=== PATIENT | female | born 2000 | race Caucasian/White ===

== ENCOUNTER 2019-03-06 08:00 | Inpatient (IN) | payer SELFPAY ==
[2019-03-06] MEDS ORDERED: Fentanyl 100 MCG/2 ML VIAL ONE ×3 (09:09→12:07)
[2019-03-06] MEDS ORDERED: Lidocaine 1% w/Epinephrine 1:100K 20 ML VIAL ONE (09:49)
[2019-03-06] MEDS ORDERED: Bupivacaine 0.25% HCL 30 ML VIAL ONE (09:49)
[2019-03-06] MEDS ORDERED: Promethazine HCl 25 MG/ML VIAL IM PRN ×3 (11:44→12:00)
[2019-03-06] MEDS ORDERED: Dextrose 5% in Water 1,000 ML IV PRN (11:44)
[2019-03-06] MEDS ORDERED: HYDROcodone/Acetaminophen 10/325 mg Tablet PO PRN ×2 (11:44)
[2019-03-06] MEDS ORDERED: Ondansetron PF 4 MG/2 ML Vial IVP PRN (11:44)
[2019-03-06] MEDS ORDERED: Dextrose 50% Abboject 50 ML SYRINGE SLOW IVP PRN (11:44)
[2019-03-06] MEDS ORDERED: hydrALAZINE 20 MG/ML VIAL SLOW IVP PRN (11:44)
[2019-03-06] MEDS ORDERED: Morphine 2 MG/ML SYRINGE SLOW IVP PRN (11:44)
[2019-03-06] MEDS ORDERED: Acetaminophen 325 MG TAB PO PRN (11:44)
[2019-03-06] MEDS ORDERED: Morphine 4 MG/ML VIAL SLOW IVP PRN (11:44)
[2019-03-06] MEDS ORDERED: Meperidine HCl/PF 25 MG/ML VIAL ONE (11:48)
[2019-03-06] MEDS ORDERED: Meperidine HCl/PF 25 MG/ML VIAL SLOW IVP PRN (11:52)
[2019-03-06] MEDS ORDERED: Ondansetron HCl/PF 4 MG/2 ML Vial IVP PRN ×2 (11:52→12:00)
[2019-03-06] MEDS ORDERED: Promethazine HCl 25 MG/ML VIAL SLOW IVP PRN ×2 (11:52→12:00)
[2019-03-06] MEDS ORDERED: Lidocaine 1% PF 5 ML VIAL ONE (12:54)
[2019-03-06] MEDS ORDERED: PROPOFOL 200 MG/20 ML VIAL ONE (12:54)
[2019-03-06] MEDS ORDERED: Rocuronium Bromide 10 MG/ML (10ML VIAL) ONE (12:54)
--- NOTE | 2019-03-06 14:09 | OP ---
DATE OF PROCEDURE: 03/06/2019 PREOPERATIVE DIAGNOSIS: Acute appendicitis. PROCEDURE PERFORMED: Laparoscopic appendectomy. INDICATIONS: A 18-year-old female with 18-hour history of right lower quadrant pain, who went to the emergency room and was found to have appendicitis on CT. She started developing more generalized peritoneal signs and fever. FINDINGS: A ruptured appendix with a pelvic abscess, gangrenous in nature. DESCRIPTION OF PROCEDURE: After informed consent was obtained, the patient was taken to the operating room, given general endotracheal anesthesia, placed in the supine position. Abdomen was prepped and draped in usual fashion. Local anesthesia was infiltrated subcutaneously and deep and a subumbilical incision was performed, subcu divided sharply. The fascia was grasped with 2 stay sutures of 0 Vicryl placed in each side of midline. Midline was incised. Digital palpation revealed no local adhesions. A blunt 12-mm trocar inserted. Pneumoperitoneum was created to a pressure of 15 mmHg. A 0-degree laparoscope inserted under direct vision. Two 5-mm ports were placed, one suprapubic, one right lateral abdomen. The appendix was found, it was gangrenous. The mesoappendix was divided with LigaSure. The base of the appendix was divided with the linear 45 mm white load stapler. It was placed in an endosac, removed from the abdomen through the umbilical port in the endosac. She had cloudy purulent peritoneal fluid primarily in the pelvis. This was collected in a sputum trap for culture. Then, the residual was removed. Then, the abdomen was thoroughly irrigated with saline. A drain was placed and brought out through the suprapubic incision, placed in the pelvis and along the right gutter. Hemostasis was assured. Trocars and retractors were removed. The fascia was closed with interrupted 0 Vicryl suture. The skin was closed with interrupted 4-0 Rapide. Dermabond was applied. The patient tolerated the procedure well, transferred to Recovery in good condition. Sponge and needle count verified correct x2. Job ID: [id number]
[2019-03-06 16:36] VITALS: BMI 23.1
[2019-03-06] MEDS: D5 1/2 NS w/20 mEq KCL 1,000 ML IV SCH ×2 (18:18→21:05)
[2019-03-06] MEDS: Ketorolac Tromethamine 30 MG/ML VIAL IVP SCH ×2 (18:19→23:11)
[2019-03-06] MEDS: Piperacillin/Tazobactam 3.375 GM in Sodium Chloride 0.9% 100 ML IVPB SCH ×2 (18:22→23:11)
[2019-03-06] MEDS: Famotidine/PF 20 mg/2ml Vial SLOW IVP SCH (20:50)
[2019-03-06] MEDS: Famotidine 20 MG TAB PO SCH (21:04)
[2019-03-07] MEDS: D5 1/2 NS w/20 mEq KCL 1,000 ML IV SCH (06:06)
[2019-03-07] MEDS: Piperacillin/Tazobactam 3.375 GM in Sodium Chloride 0.9% 100 ML IVPB SCH ×2 (06:06→11:50)
[2019-03-07] MEDS: Ketorolac Tromethamine 30 MG/ML VIAL IVP SCH ×2 (06:06→11:50)
[2019-03-07 06:38] LABS: #Lymphocytes 1.9 thou/uL (1.20-3.40); #Monocytes 0.4 thou/uL (0.11-0.59); %Basophils 0.1 % (0.0-1.0); %Eosinophils 0.5 % (0.0-10.0); %Lymphocytes 35.1 % (28.0-48.0); %Monocytes 7.6 % (0.0-4.0); %Neutrophils 56.7 % (31.0-61.0); Hemoglobin 9.4 g/dL (12.0-16.0); Mean Corpuscular Hemoglobin 32.5 pg (25.0-35.0); Mean Corpuscular Volume 92.9 fL (78.0-98.0); Mean Platelet Volume 7.8 fL (7.4-10.4); Platelet Count 136 thou/uL (130-400); RBC Distribution Width 11.5 % (11.5-14.5); White Blood Cell (WBC) Count 5.3 thou/uL (4.8-10.8)
[2019-03-07 07:00] LABS: Anion Gap 10 mmol/L (10-20); BUN (Urea Nitrogen) 6 mg/dL (7.0-18.7); Calc. Creatinine Clearance 140 mL/min (70-130); Calcium 8.1 mg/dL (7.8-10.44); Carbon Dioxide 23 mmol/L (22-29); Chloride 108 mmol/L (98-107); Estimated GFR-MDRD Greater than 90; Glucose 101 mg/dL (70-105); Potassium 3.6 mmol/L (3.5-5.1); Sodium 137 mmol/L (136-145)
[2019-03-07] MEDS ORDERED: Enoxaparin Sodium 40 MG/0.4 ML SYRINGE SC SCH (09:00)
[2019-03-07] MEDS: Famotidine 20 MG TAB PO SCH (09:33)
[2019-03-07] MEDS: Famotidine/PF 20 mg/2ml Vial SLOW IVP SCH (09:34)
[2019-03-07 12:32] VITALS: BP 111/72; TEMP 98.5
--- NOTE | 2019-03-09 12:05 | DIS ---
DATE OF ADMISSION: 03/06/2019 DATE OF DISCHARGE: 03/07/2019 DISCHARGE DIAGNOSIS: PROCEDURE: Laparoscopic appendectomy on 03/06/2019. Postoperatively, she was admitted for IV antibiotics. The SANDY drain in place. She had moderate output from the SANDY drain, but was afebrile with normal white count and no growth from intraoperative cultures on postop day 1. The patient and her family requested discharge home on oral antibiotics with close followup in the outpatient clinic. I explained that my preference is to keep her for another 24 hours of antibiotics, but since clinically she was doing well and requested discharge, proceeded with discharge home on oral antibiotics. Due to the history of pelvic abscess and continued moderate output from the SANDY drain, the patient was instructed on SANDY care, told to make an appointment on Saturday for removal of the drain in clinic. She was sent home with prescriptions for ciprofloxacin and Flagyl for 3 days time. She has been given a prescription for Hubbard, but requested pain medication. It was not as strong, so she was also given a prescription for tramadol and instructed to use Tylenol and ibuprofen as first-line treatment for pain. She is to call on Saturday for a followup appointment with Dr. Dasilva. She is to keep an occlusive watertight dressing over the SANDY drain when she showers and to restrict her lifting to nothing heavier than 10 pounds. She is to return immediately if she develops worsening pain, fevers or chills. Job ID: [id number]
== END 2019-03-07 14:14 | disposition home or self-care (01) | DRG 340 ==
LOC: SDC 08:00 → SURG B 12:57
PROVIDERS: ADMIT Surgery; ATTEND Surgery
PROC: 0DTJ4ZZ Resection of Appendix, Percutaneous Endoscopic Approach (ICD-10-PCS; principal; 2019-03-06)
DX: K35.33 Acute appendicitis with perforation, localized peritonitis, and gangrene, with abscess (principal)
CPT/HCPCS: 36415; 80048; 85025; 87070; 87205; 88304; J0131; J1650; J1885; J2001; J2175; J2270; J2405; J2543; J2704; J3010; J3490; S0020; S0028